=== PATIENT | male | born 1970 | race Caucasian/White ===

== ENCOUNTER 2021-12-21 12:16 | Observation (INO) | payer OTHER, SELFPAY ==
[2021-12-21] VITALS (56 sets, daily range): BP systolic 125–176; BP diastolic 80–130; PULSE 77–105; RESP 13–32; TEMP 36.1–36.4; O2SAT 92–100; BMI 25.7
--- NOTE | ~2021-12-21 | XR_ITS ---
EXAMINATION: XR chest 2V DATE: 12/21/2021 14:56 INDICATION: Chest pain TECHNIQUE: PA and lateral views of the chest are obtained. COMPARISON: 10/18/2007 FINDINGS: There is mild atelectasis of the lung bases. There is no pleural effusion or pneumothorax. The cardiomediastinal silhouette is normal. There is mild thoracic spondylosis. IMPRESSION: 1. Mild atelectasis of the lung bases. Reviewed, dictated and finalized at location F. MENT SETTER
--- NOTE | ~2021-12-21 | NM_ITS ---
EXAMINATION: NM jaden stress w perfusion DATE: 12/22/2021 14:16 INDICATION: Chest pain TECHNIQUE: Rest images were obtained following intravenous administration of 10.1 mCi Tc99m tetrofosm in (Myoview). The patient was infused intravenously with Lexiscan (Regadenoson). Then, 29.6 mCi Tc99m tetrofosmin (Myoview) was administered intravenously, and stress images were obtained in supine posi tion. Additional prone post stress images were obtained. Data was reconstructed into short axis and h orizontal and vertical long axis SPECT images. Gated SPECT images were also obtained. COMPARISON: None. FINDINGS: There is no definite reversible or fixed perfusion abnormality to suggest ischemia or infar ction. There is normal left ventricular chamber size, wall motion and ejection fraction. Left ventr icular ejection fraction measures 59%. IMPRESSION: 1. Normal myocardial perfusion at rest and during stress. 2. Left ventricular ejection fraction measuring 59%. Reviewed, dictated and finalized at location A. D SUPERVISOR
--- NOTE | ~2021-12-21 | US_ITS ---
EXAMINATION: US right upper quadrant EXAM DATE: 12/22/2021 13:40 INDICATION: Epigastric pain . TECHNIQUE: Multiple grayscale and Doppler images of the abdomen right upper quadrant were obtained (b y a technologist who performed the scan) and subsequently reviewed. There is no prior study for ruth brito. FINDINGS: The pancreatic head and body are normal in appearance. The pancreatic tail is not visualized. Mildl y echogenic liver parenchyma, hepatic steatosis. There are no focal liver lesions identified. Ther e is no evidence of intrahepatic biliary duct dilation. Portal venous flow was seen in the hepatoped al, normal direction and has normal Doppler waveform. No right-sided hydronephrosis. Common bile duct measures 4 mm, which is normal. The gallbladder wall is normal in thickness, with ex pected amount of distention. No sonographic evidence of pericholecystic fluid. There is no cholelit hiases. Technologist performing exam reports patient did not demonstrate sonographic Olivier's sign. Please note that this sign is less reliable in patients who have received pain medication. IMPRESSION: 1. Hepatic steatosis. Reviewed, dictated and finalized at location A. ON RAILS ENGINEER IMPRESSION: 1. Hepatic steatosis.
--- NOTE | 2021-12-21 12:25 | ECG_ITS ---
Measurements Intervals Isabella Rate: 101 P: 13 VA: 147 QRS: -50 QRSD: 136 T: 105 QT: 362 QTc: 471 Interpretive Statements SINUS TACHYCARDIA LEFT AXIS DEVIATION LEFT BUNDLE BRANCH BLOCK BASELINE ARTIFACT- I, II, AVR ABNORMAL ECG Electronically Signed On 12-21-2021 13:12:56 ENVIRONMENTAL PERMITTING SPECIALIST by Everardo Lechuga D.O.
--- NOTE | 2021-12-21 13:56 | ED.CHESTPAIN ---
HPI - Chest Pain General Chief Complaint: Chest Pain <Phuong Calvin APRN - Last Filed: 12/21/21 17:22> Stated Complaint: Chest pain/SOB <Phuong Calvin APRN - Last Filed: 12/21/21 17:22> Time Seen by Provider: 12/21/21 13:48 <Phuong Calvin APRN - Last Filed: 12/21/21 17:22> Source: patient <Phuong Calvin TIRE CENTER MANAGER - Last Filed: 12/21/21 17:22> Mode of arrival: ambulatory <Phuong Calvin APRN - Last Filed: 12/21/21 17:22> Limitations: no limitations <Phuong Calvin TIRE CENTER MANAGER - Last Filed: 12/21/21 17:22> History of Present Illness HPI narrative: 51 y/o male presents to the ER today for chest discomfort. He reports chest pressure across his lower chest. He says that it started around 9am. He says that he initially felt short of breath but this has eased up. He says that the pressure is still there but has also eased up since it first began. He says that he went camping over the weekend and did some hiking. He says that he would get the chest pressure and shortness of breath while he was hiking but it would ease up with rest. He denies any PMH. He has never had to see cardiology for any reason. He denies any cough or congestion. No fever or chills. No n/v/d. <Phuong Calvin APRN - Last Filed: 12/21/21 17:22> Related Data Allergies/Adverse Reactions: Allergies Allergy/AdvReac Type Severity Reaction Status Date / Time No Known Allergies Allergy Verified 12/21/21 16:05 <Phuong Calvin APRN - Last Filed: 12/21/21 17:22> Review of Systems Constitutional: Constitutional: Denies chills, Denies fatigue and Denies fever(s) <Phuong Calvin APRN - Last Filed: 12/21/21 17:22> Eyes: Eyes: Denies change in vision <Phuong Calvin APRN - Last Filed: 12/21/21 17:22> ENT: Reports system reviewed and no additional complaints, except as documented <Phuong Calvin TIRE CENTER MANAGER - Last Filed: 12/21/21 17:22> Cardiovascular: Cardiovascular: Reports chest pain, Denies rapid heart rate, Denies radiating jaw, neck or arm pain and Denies slow heart rate <Phuong Calvin TIRE CENTER MANAGER - Last Filed: 12/21/21 17:22> Respiratory: Respiratory: Denies chest congestion, Denies cough, Reports dyspnea and Denies wheezing <Phuong Calvin, TIRE CENTER MANAGER - Last Filed: 12/21/21 17:22> Gastrointestinal: Gastrointestinal: Denies abdominal pain, Denies constipation, Denies diarrhea, Denies nausea and Denies vomiting <Phuong Calvin, TIRE CENTER MANAGER - Last Filed: 12/21/21 17:22> Genitourinary: Genitourinary: Reports no additional male genitourinary complaints <Phuong Calvin TIRE CENTER MANAGER - Last Filed: 12/21/21 17:22> Musculoskeletal: Musculoskeletal: Reports no additional musculoskeletal complaints <Phuong Calvin, TIRE CENTER MANAGER - Last Filed: 12/21/21 17:22> Integumentary/Breasts: Skin/Breast: Reports system reviewed and no additional complaints, except as docu <Phuong Calvin TIRE CENTER MANAGER - Last Filed: 12/21/21 17:22> Neurologic: Denies vertigo, Denies dizziness, Denies headache(s) and Denies numbness <Phuong Calvin, TIRE CENTER MANAGER - Last Filed: 12/21/21 17:22> Psychiatric: Psychiatric: Reports no additional psychiatric complaints <Phuong Calvin, TIRE CENTER MANAGER - Last Filed: 12/21/21 17:22> Exam Const: General: healthy appearing, no acute distress and alert <Phuong Calvin TIRE CENTER MANAGER - Last Filed: 12/21/21 17:22> Orientation/consciousness: patient oriented x3 <Phuong Calvin TIRE CENTER MANAGER - Last Filed: 12/21/21 17:22> HENMT: Head: normal to inspection <Phuong Calvin TIRE CENTER MANAGER - Last Filed: 12/21/21 17:22> Eyes: Conjunctivae: conjunctivae normal <Phuong Calvin, TIRE CENTER MANAGER - Last Filed: 12/21/21 17:22> Pupils: Equal, round and reactive pupils present <Phuong Calvin TIRE CENTER MANAGER - Last Filed: 12/21/21 17:22> Neck: Neck: normal visual inspection <Phuong Calvin TIRE CENTER MANAGER - Last Filed: 12/21/21 17:22> Chest: Chest palpation & inspection: normal inspection of the chest and no tenderness <Phuong Garrido
[2021-12-21 14:32] LABS: Basophils Absolute Auto 0.1 K/mm3 (0.0-0.1); Basophils Percent Auto 0.8 % (0.2-1.2); Eosinophils Absolute Auto 0.2 K/mm3 (0-0.3); Hematocrit 44.4 % (42.0-52.0); Hemoglobin 15.3 g/dL (14.0-18.0); Immature Granulocyte Absolute 0.03 K/mm3 (0.00-0.031); Immature Granulocyte Percent A 0.4 % (0-0.5); Lymphocytes Absolute Auto 2.26 K/mm3 (0.9-3.2); Lymphocytes Percent Auto 28.3 % (18.3-44.2); Mean Corpuscular HGB Conc 34.5 g/dl (32-36); Mean Corpuscular Hemoglobin 32.3 pg (26-34); Mean Corpuscular Volume 93.9 fl (80-100); Mean Platelet Volume 9.6 fl (7.4-10.4); Monocytes Absolute Auto 0.6 K/mm3 (0.1-0.6); Monocytes Percent Auto 7.8 % (2.6-8.5); Neutrophils Absolute Auto 4.9 K/mm3 (1.3-6.7); Neutrophils Percent Auto 60.7 % (45.5-73.1); Platelet Count Result 173 k/mm3 (150-375); Red Blood Count 4.73 M/mm3 (4.6-6.20); Red Cell Distribution Width 12.9 % (11.5-14.5)
[2021-12-21 14:46] LABS: Prothrombin Time 12.5 Seconds (11.1-14.7)
[2021-12-21 14:47] LABS: Partial Thromboplastin Time 27.3 SECONDS (22.3-36.8)
[2021-12-21 14:49] LABS: D Dimer 0.39 ug/mL (<0.48)
[2021-12-21 14:51] LABS: Alanine Aminotransferase 37 U/L (4-50); Albumin Level 4.4 g/dL (3.5-5.1); Alkaline Phosphatase 98 U/L (38-126); Anion Gap 9 mmol/L (8-16); Aspartate Amino Transferase 39 U/L (17-59); Bilirubin,Total 0.4 mg/dL (0.2-1.3); Blood Urea Nitrogen 20 mg/dL (9-20); Carbon Dioxide 28 mmol/L (22-30); Chloride 104 mmol/L (98-107); Estimated CRCL calculation 84 ml/min; Estimated Glomerular Filt Rate > 60; Glucose 97 mg/dL (65-110); Potassium 4.2 mmol/L (3.4-5.0); Sodium 141 mmol/L (137-145)
[2021-12-21 15:02] LABS: Troponin I < 0.012 ng/mL (0.000-0.034)
[2021-12-21] MEDS: Please add drug allergy info to patient profile. 1 EACH XX (16:06)
[2021-12-21] MEDS: ASPIRIN 81 MG CHEWABLE TABLET 324 MG PO (16:13)
--- NOTE | 2021-12-21 16:35 | PM.IMHP ---
H&P: HPI History of Present Illness Date/Time: 12/21/21 16:35 Chief Complaint: Chest pain. Narrative: This is a pleasant 51-year-old male with without significant medical history who presented to the emergency department via private vehicle for evaluation of chest pain. Simply while sitting down at his desk at work today he developed midsternal chest discomfort that he describes as a pressure-like sensation associated with shortness of breath and cold sweats. He mentions having similar chest pressure a couple of times while hiking last weekend though it did not last long and there were no associated symptoms. Thus far his symptoms have been self-limiting and went away with rest however they have lasted longer today prompting him to come in for evaluation. His symptoms had resolved by the time he got to the emergency department. Initial troponin was less than 0.012 though his EKG demonstrated a left bundle branch block, and he is being admitted in this setting. Blood pressure on arrival today was 174/102 and with further questioning he has no known history of hypertension. Currently he has no specific complaints and he is chest pain-free. Review of Systems Review of Systems: Twelve systems were reviewed. No syncope or near syncope. He denies headache, focal weakness, and paresthesias. No fever, chills, or sweats. No recent cold or flu symptoms. He has seasonal allergies which have been kicking up again recently. He recently broke his left 5th toe and has been taking 3 naproxen most nights for the past 2 weeks due to the pain.No epigastric and abdominal discomfort. Reports occasional heartburn symptoms but nothing significant. He denies abdominal distension, bloating, and belching. No dark stools. He denies orthopnea, PND, and lower extremity edema. Except as documented, all other systems were reviewed and are negative. [facility] Past Medical History Medical History (Updated 12/21/21 @ 21:24 by Riri Duff PA-C) Seasonal allergies Surgical History Surgical History (Updated 12/21/21 @ 21:19 by Riri Duff PA-C) History of arthroscopy of right knee (2007) For meniscal tear. History of left inguinal hernia repair (1997) Family History Family History (Updated 12/21/21 @ 21:21 by Riri Duff PA-C) Mother Diabetes mellitus Father Malignant neoplasm of prostate Sibling Tachycardia Social History Social History (Updated 12/21/21 @ 21:22 by Riri Duff PA-C) Social History: The patient lives in [place] with his and 2 children. Two other children are grown and are no longer living at home. He works in IT. He is a lifelong nonsmoker and denies alcohol and illicit substance use. He designates his , Milagros Vega, as his surrogate decision maker and he wishes to be a full code. Meds Home Medications and Allergies Allergies Allergy/AdvReac Type Severity Reaction Status Date / Time No Known Allergies Allergy Verified 12/21/21 16:05 Vital Signs Vital Signs - 24 hr 12/21/21 12:28 12/21/21 14:19 12/21/21 15:58 Temperature 97.6 F Pulse Rate 100 77 90 Respiratory Rate 16 16 21 H Blood Pressure 174/102 H 154/98 H 146/99 H Pulse Oximetry 100 96 96 Exam Narrative: General: Well-developed male sitting up in bed. Weight: 84.37 kg. BMI: 27.5. HEENT: PERRL, EOMI. Sclerae anicteric. Oral mucosa moist. Oropharynx clear. Neck: Supple. No carotid bruits or JVD. Respiratory: Lungs are clear to auscultation bilaterally. Cardiovascular: Tachycardic with regular rhythm and S1-S2. Chest: No tenderness to palpation of the chest wall. Gastrointestinal: Abdomen is soft, nontender, and nondistended with positive bowel sounds. Skin: Warm and dry. No rash or lesions on limited exam. Extremities: No cyanosis, clubbing, or edema. Radial and pedal pulses intact. Neurological: Alert. Cranial nerves 2-12 are grossly intact. No gross focal deficits to casual conversation. Psychiatric: Pleasan
[2021-12-21 17:27] LABS: Troponin I < 0.012 ng/mL (0.000-0.034)
[2021-12-21 19:43] LABS: Troponin I < 0.012 ng/mL (0.000-0.034)
[2021-12-21 21:37] LABS: SARS-CoV-2 RNA PCR Negative
[2021-12-21] MEDS: METOPROLOL TARTRATE 25 MG TABLET PO (22:59)
[2021-12-22] VITALS (11 sets, daily range): BP systolic 109–148; BP diastolic 67–89; PULSE 65–98; RESP 16–20; TEMP 36.6–36.9; O2SAT 95–99
--- NOTE | 2021-12-22 | ECHO_ITS ---
Patient Info Name: Silvano Vega Age: 51 years : 1970 Gender: Male Ht: 69 in Wt: 174 lbs BSA: 1.97 m2 HR: 86 bpm BP: 148 / 89 mmHg Heart Rhythm: Sinus Rhythm Exam Date: 12/22/2021 2:14 PM Exam Location: [facility] Patient Status: Inpatient Admit Date: 12/21/2021 Staff Ordering Physician: Singh Perea MD Driller Brake Lining: Etienne Olivier RDCS, RT Attending Provider: Jael Yu MD Exam Type: CA echo doppler w bubble study Study Info Indications R07.9 - Chest pain, unspecified Complete two-dimensional, color flow and Doppler transthoracic echocardiogram is performed. Strain analysis performed. Complete two-dimensional, color flow and Doppler transthoracic echocardiogram is performed with agitated saline. Summary 1. Strain analysis performed. 2. Complete two-dimensional, color flow and Doppler transthoracic echocardiogram is performed with agitated saline. 3. Left ventricular chamber dimension is normal. 4. Left ventricular systolic function is normal, estimated at 55-60%. 5. There is mildly increased left ventricular wall thickness. 6. Left ventricular septal wall motion is abnormal with septal motion related to bundle branch block. 7. The left ventricular diastolic function is grade I diastolic dysfunction. 8. Global longitudinal strain is abnormal at -15 %. 9. Intact interatrial septum visualized by color flow and agitated saline imaging. 10. There is mild mitral valve regurgitation. Left Ventricle Left ventricular chamber dimension is normal. Left ventricular systolic function is normal, estimated at 55-60%. There is mildly increased left ventricular wall thickness. Left ventricular septal wall motion is abnormal with septal motion related to bundle branch block. The left ventricular diastolic function is grade I diastolic dysfunction. Global longitudinal strain is abnormal at -15 %. Right Ventricle Right ventricular chamber dimension is normal. Right ventricular systolic function is normal. Left Atria Left atrial chamber dimension is normal. Right Atria Right atrial chamber dimension is normal. Atrial Septum Intact interatrial septum visualized by color flow and agitated saline imaging. Aortic Valve The aortic valve is probable trileaflet. There is no aortic valve stenosis. There is trace aortic valve regurgitation. Pulmonic Valve The pulmonic valve is normal. There is no pulmonic valve stenosis. There is trace pulmonic regurgitation. Mitral Valve The mitral valve has normal leaflets. There is no mitral valve stenosis. There is mild mitral valve regurgitation. Tricuspid Valve The tricuspid valve leaflets are normal. There is no significant tricuspid valve stenosis. There is trace tricuspid valve regurgitation. Pericardium/Pleural The pericardium appears normal. There is no pericardial effusion. Inferior Vena Cava Normal inferior vena cava with >50% collapse upon inspiration consistent with normal right atrial pressure, 5 mmHg. Aorta The aortic root size at the sinus of Valsalva is normal. Left Ventricular Outflow Tract Name Value Normal LVOT 2D LVOT Diameter 2.0 cm LVOT Doppler
--- NOTE | 2021-12-22 00:24 | ADMGEN ---
This patient, Silvano Vega, was admitted to IMU Room 200-01. Patient/family oriented to hospital policies and general routines including ID bracelet, bed and alarms, visiting hours, pain management, procedures, bathroom and other care routines, personal items, smoking policy, room service/diet, and visiting hours. Information on how to activate the Rapid Response Team has been discussed. Patient/Family are encouraged to report perceived risks to care and to ask questions if they do not understand what they are told or what they should do.
[2021-12-22 05:09] LABS: Anion Gap 7 mmol/L (8-16); Blood Urea Nitrogen 15 mg/dL (9-20); Calcium 8.6 mg/dL (8.4-10.2); Carbon Dioxide 24 mmol/L (22-30); Chloride 107 mmol/L (98-107); Cholesterol 229 mg/dL (0-200); Estimated CRCL calculation 84 ml/min; Estimated Glomerular Filt Rate > 60; Glucose 95 mg/dL (65-110); HDL Direct 38 mg/dL; Magnesium 2.3 mg/dL (1.6-2.3); Sodium 138 mmol/L (137-145); Triglycerides 134 mg/dL (<150)
[2021-12-22 05:19] LABS: LDL Cholesterol Direct 149 mg/dL
[2021-12-22] MEDS: ASCORBIC ACID 500 MG TABLET 1000 MG PO (08:54)
[2021-12-22] MEDS: MULTIVITAMINS THERAPEUTIC TAB (*BKC) 1 TABLET PO (08:54)
[2021-12-22] MEDS: ASPIRIN 81 MG ENTERIC TABLET PO (08:54)
--- NOTE | 2021-12-22 10:52 | EST_ITS ---
Patient Info Name: Silvano Vega Age: 51 years : 1970 Gender: Male Ht: 69 in Wt: 186 lbs BSA: 2.04 m2 HR: 95 bpm BP: 155 / 104 mmHg Heart Rhythm: Sinus Rhythm Exam Date: 12/22/2021 12:14 PM Exam Location: [facility] Stress Patient Status: Inpatient Admit Date: 12/21/2021 Staff Ordering Physician: Singh Perea MD Attending Provider: Jael Yu MD Exercise Technologist: Cora Awan, CT Nurse: HOUSTON VANEGAS Exam Type: CA stress jaden w NM Study Info Indications R07.9 - Chest pain, unspecified A regadenoson stress test was performed. Summary 1. Please correlate with nuclear medicine images, reported separately. 2. No abnormal ST-T wave changes with lexiscan. 3. Reduced sensitivity given baseline ECG abnormalities. Protocol: Lexiscan Stress ECG Details Stage: REST Duration (min): 2 min : 59 sec HR (bpm): 90 SBP (mmHg): 155 DBP (mmHg): 104 Stage: REST Duration (min): 13 min : 52 sec HR (bpm): 93 SBP (mmHg): 155 DBP (mmHg): 104 Stage: STAGE 1 Duration (min): 0 min : 59 sec HR (bpm): 111 SBP (mmHg): 158 DBP (mmHg): 75 Stage: RECOVERY Duration (min): 1 min : 0 sec HR (bpm): 109 SBP (mmHg): 158 DBP (mmHg): 75 Stage: RECOVERY Duration (min): 2 min : 0 sec HR (bpm): 109 SBP (mmHg): 158 DBP (mmHg): 75 Stage: RECOVERY Duration (min): 3 min : 0 sec HR (bpm): 103 SBP (mmHg): 135 DBP (mmHg): 87 Stage: RECOVERY Duration (min): 3 min : 11 sec HR (bpm): 108 SBP (mmHg): 135 DBP (mmHg): 87 Rest HR: 93 bpm Peak HR: 114 bpm Rest Sys BP: 155 mmHg Peak Sys BP: 158 mmHg Max Pred HR: 168 bpm % Max Pred HR: 68 % Target HR: 143 bpm Max RPP: 18,012 bpm*mmHg BP Response: Normal blood pressure response Termination Reason: Completed protocol Cardiac Symptoms: None Total Time: 1 min : 0 sec Rest Yancey BP: 104 mmHg Peak Yancey BP: 75 mmHg Total Dose: 0.4 mg Resting ECG Normal sinus rhythm. Left bundle branch block. Stress ECG No abnormal ST/T wave changes with exercise. Arrhythmias None. Report Signatures
[2021-12-22 11:28] LABS: Lipase 159 U/L (23-300)
[2021-12-22] MEDS: PANTOPRAZOLE 40 MG TABLET PO (11:30)
[2021-12-22] MEDS: lisinopriL 10 MG TABLET PO (11:30)
[2021-12-22] MEDS: ENOXAPARIN 40 MG/0.4 ML SYRINGE SUB-Q (14:38)
--- NOTE | 2021-12-22 16:30 | PM.DS ---
DS: Admitting Diagnosis Discharge Date 12/22/21 Admitting Diagnosis Chest pain DS: Discharge Diagnosis Discharge Diagnosis (1) Chest pain: Code(s): R07.9 - Chest pain, unspecified Status: Acute (2) Elevated blood pressure reading: Code(s): R03.0 - Elevated blood-pressure reading, without diagnosis of hypertension Status: Acute (3) Left bundle branch block: Code(s): I44.7 - Left bundle-branch block, unspecified Status: Acute (4) Hepatic steatosis: Code(s): K76.0 - Fatty (change of) liver, not elsewhere classified Status: Acute DS: Summary Hospital Course Reason for hospitalization: 51yo male presents with complaints of chest pain. Please see H&P for details Hospital Course: Blood pressure on admission was 174/102. CBC, PT, PTT, D-dimer and CMP all were normal. Troponin was negative x3. TSH was normal. Lipase was normal. Triglycerides 134, cholesterol 229, LDL 149, and HDL 38. COVID nasal swab was negative. Chest x-ray showed mild atelectasis in the bases. EKG shows sinus tachycardia rate of 101 with last axis deviation and left bundle branch block. No old EKGs to compare. Upper quadrant ultrasound showed hepatic steatosis but otherwise normal scan. patient was given a full aspirin. He has been taking Aleve daily for the past 2 weeks due to a recent toe fracture. Given the concern this may be gastritis, he was started on Protonix. He underwent a Lexiscan nuclear stress test which showed no definitive reversible or fixed perfusion abnormalities to suggest ischemia or infarct. He had a normal LV size, wall motion and EF. EF was 59%. Echocardiogram was performed and is pending this dictation. It was suspected that the bundle branch block is chronic. I did speak with Cardiology who recommended that the patient follow-up with Cardiology team after discharge due to the bundle branch block. He was started on metoprolol but Cardiology recommended an Galileo inhibitor instead so as not to slow conduction. Blood pressure became better controlled with treatment. Patient remained asymptomatic. Plan discharge home with lisinopril and Protonix. Side effects were discussed. Recommend patient stop Aleve and other NSAIDs use at this time. Voices understanding of this. Status at Discharge Cognitive/behavioral status at discharge: stable Time Spent with Patient Time attestation: Total time spent providing and/or coordinating discharge services: 38 minutes Time spent: Greater than 30 minutes Exam Narrative: AF 98.3 121/85 88 20 95% ra Gen - NARD Chest - CTA bilaterally, nml RR CV - RRR S1/S2 Abd - Soft, NT/ND, Positive BS Ext - No pedal edema Neuro - Alert and oriented. Nonfocal exam. Psych - Nml mood and affect Skin - Warm and dry DS: Data Data Completed and Pending Labs on day of discharge: Labs from last 24 hours 12/22/21 12/22/21 12/22/21 04:39 04:39 04:37 Sodium 138 Potassium 4.0 Chloride 107 Carbon Dioxide 24 Anion Gap 7 L BUN 15 D Creatinine 0.90 Estim Creat Clear Calc 84 Estimated GFR > 60 Glucose 95 Calcium 8.6 Magnesium 2.3 Troponin I Triglycerides 134 Cholesterol 229 H LDL Cholesterol Direct 149 HDL Direct 38 Lipase 159 TSH (Reflex) 3.770 SARS-CoV-2 RNA (RT-PCR) 12/21/21 12/21/21 12/21/21 20:46 19:15 16:53 Sodium Potassium Chloride Carbon Dioxide Anion Gap BUN Creatinine Estim Creat Clear Calc Estimated GFR Glucose Calcium Magnesium Troponin I < 0.012 < 0.012 Triglycerides Cholesterol LDL Cholesterol Direct HDL Direct Lipase TSH (Reflex) SARS-CoV-2 RNA (RT-PCR) Negative Discharge Plan Discharge Attending physician on discharge: Singh Perea Discharging Clinician: Singh Perea Anticipated Discharge Date/Time: 12/22/21 16:40 Patient Disposition: Home, Self-Care
--- NOTE | 2021-12-24 07:22 | PC.NURSE ---
Echo report faxed to Dr. Looney. Dr. Perea aware of ECHO findings.
== END 2021-12-22 15:40 | disposition home or self-care (01) ==
LOC: ANHED 17:21 → ANHIMU 12-22 01:14
PROVIDERS: Emergency Medicine; Physician Assistant; Admitting Provider Internal Medicine; Emergency Provider Nurse Practitioner Family; PCP Internal Medicine; Visit Provider Internal Medicine
DX: R07.9 Chest pain, unspecified (principal); R03.0 Elevated blood-pressure reading, without diagnosis of hypertension; R10.13 Epigastric pain; I44.7 Left bundle-branch block, unspecified; K76.0 Fatty (change of) liver, not elsewhere classified; Z20.822 Contact with and (suspected) exposure to COVID-19
CPT/HCPCS: 36415; 71046; 76705; 78452; 80048; 80053; 80061; 83690; 83735; 84443; 84484; 85025; 85380; 85610; 85730; 93005; 93017; 93306; 96372; 96375; 99285; A9270; A9502; C9803; G0378; J1650; J2785; U0003; U0005